=== PATIENT | male | born 1960 | race Hispanic/Latino ===

== ENCOUNTER 2019-04-10 17:05 | Emergency (ER) | payer MEDICARE ==
--- NOTE | 2019-04-10 17:17 | Emergency Department Report ---
Blank Doc - Documentation Documentation: 58-year-old male that presents with uncontrolled HTN. Stated has history of d epression. Deneis any SI/HI. This initial assessment/diagnostic orders/clinical plan/treatment(s) is/are subject to change based on patient's health status, clinical progression and re- assessment by fellow clinical providers in the ED. Further treatment and workup at subsequent clinical providers discretion. Patient/guardians urged not to elope from the ED as their condition may be serious if not clinically assessed and managed. Initial orders include: 1- Patient sent to [facility] for further evaluation and treatment 2- EKG 3- labs
[2019-04-10 18:23] LABS: Basophils # (Auto) 0.1 K/mm3 (0.0-0.1); Basophils % (Auto) 0.9 % (0.0-1.8); Eosinophils % (Auto) 0.1 % (0.0-4.3); Hematocrit 47.8 % (35.5-45.6); Hemoglobin 16.4 gm/dl (11.8-15.2); Lymphocytes # (Auto) 0.9 K/mm3 (1.2-5.4); Lymphocytes % (Auto) 7.2 % (13.4-35.0); Mean Corpuscular HGB Conc 34 % (32-34); Mean Corpuscular Volume 85 fl (84-94); Monocytes # (Auto) 0.9 K/mm3 (0.0-0.8); Monocytes % (Auto) 7.8 % (0.0-7.3); Platelet Count 234 K/mm3 (140-440); Red Cell Distribution Width 13.3 % (13.2-15.2)
[2019-04-10 18:44] LABS: BUN/Creatinine Ratio 15; Blood Urea Nitrogen 18 mg/dL (9-20); Calcium 9.1 mg/dL (8.4-10.2); Hemolysis Index 6
[2019-04-10] MEDS ORDERED: cloNIDine 0.2 MG TAB PO STA (19:07)
--- NOTE | 2019-04-10 19:07 | Emergency Department Report ---
<BRY WONG - Last Filed: 04/10/19 19:03> ED General Adult HPI - General Chief complaint: High BP Stated complaint: HBP/SEVERE DEPRESSION Time Seen by Provider: 04/10/19 17:15 Source: patient, EMS Mode of arrival: Ambulatory Limitations: No Limitations - History of Present Illness Severity scale (0 -10): 0 - Related Data Allergies Allergy/AdvReac Type Severity Reaction Status Date / Time No Known Allergies Allergy Verified 04/10/19 17:09 ED Review of Systems Comment: All other systems reviewed and negative ED Past Medical Hx - Past Medical History Previous Medical History?: Yes Hx Hypertension: Yes Hx Psychiatric Treatment: Yes (bipolar, depression) - Surgical History Past Surgical History?: Yes Additional Surgical History: right leg cancer lesion removed - Social History Smoking Status: Never Smoker Substance Use Type: None ED Physical Exam - General Limitations: No Limitations General appearance: alert, in no apparent distress - Head Head exam: Present: atraumatic, normocephalic - Eye Eye exam: Present: normal appearance, PERRL, EOMI Pupils: Present: normal accommodation, other (negative funduscopic examination.) - ENT ENT exam: Present: normal exam, normal orophraynx, mucous membranes moist - Neck Neck exam: Present: normal inspection, full ROM - Respiratory Respiratory exam: Present: normal lung sounds bilaterally. Absent: respiratory distress, wheezes, rales, chest wall tenderness, accessory muscle use, decreased breath sounds - Cardiovascular Cardiovascular Exam: Present: regular rate, normal rhythm. Absent: systolic murmur, diastolic murmur, rubs, gallop - GI/Abdominal GI/Abdominal exam: Present: soft, normal bowel sounds. Absent: tenderness, guarding, organomegaly, mass - Rectal Rectal exam: Present: deferred - Extremities Exam Extremities exam: Present: normal inspection, normal capillary refill - Back Exam Back exam: Present: normal inspection, full ROM. Absent: CVA tenderness (R), CVA tenderness (L) - Neurological Exam Neurological exam: Present: alert, oriented X3, CN II-XII intact, normal gait - Psychiatric Psychiatric exam: Present: normal affect, normal mood. Absent: homicidal ideation, suicidal ideation - Skin Skin exam: Present: warm, dry, intact, normal color. Absent: rash ED Medical Decision Making - Lab Data Result diagrams: 04/10/19 17:40 04/10/19 17:40 ED Disposition Clinical Impression: Depression Disposition: DC-01 TO HOME OR SELFCARE Condition: Stable Instructions: Depression (ED) Referrals: PRIMARY CARE, [Primary Care Provider] - 3-5 Days <TOSHIA MOHAMUD - Last Filed: 04/12/19 18:53> ED Review of Systems ROS: Stated complaint: HBP/SEVERE DEPRESSION Other details as noted in HPI ED Course Vital Signs 04/10/19 04/10/19 04/10/19 17:09 17:17 18:19 Temperature 98.7 F Pulse Rate 104 H Respiratory 20 18 Rate Blood Pressure 176/119 Blood Pressure [Right] O2 Sat by Pulse 98 Oximetry 04/10/19 04/10/19 04/10/19 18:21 19:10 20:00 Temperature 99.2 F 97.8 F Pulse Rate 105 H 107 H 114 H Respiratory 18 24 20 Rate Blood Pressure 159/110 Blood Pressure 199/114 155/113 [Right] O2 Sat by Pulse 98 98 95 Oximetry 04/10/19 04/10/19 04/10/19 20:30 21:00 21:30 Temperature Pulse Rate 116 H 110 H 110 H Respiratory 18 16 21 Rate Blood Pressure 153/104 140/105 156/108 Blood Pressure [Right] O2 Sat by Pulse 96 98 96 Oximetry 04/10/19 04/10/19 04/10/19 22:01 22:30 23:00 Temperature Pulse Rate 115 H 104 H 105 H Respiratory 20 20 16 Rate Blood Pressure 146/100 150/103 142/103 Blood Pressure [Right] O2 Sat by Pulse 96 95 96 Oximetry 04/10/19 04/11/19 04/11/19 23:30 00:00 00:30 Temperature Pulse Rate 103 H 94 H Respiratory 18 18 Rate Blood Pressure 138/98 134/92 164/116 Blood Pressure [Right] O2 Sat by Pulse 96 97 97 Oximetry 04/11/19 04/11/19 04/11/19 01:00 05:31 06:19 Temperature Pulse Rate 91 H 78 76 Respiratory 19 15 11 L Rate Blood Pressure 147/109 161/114 Blood Pressure [Right] O2 Sat by Pulse 96 96 98 Oximetry 04/11/19 04/11/19 04/11/19 07:51 09:23 18:11 Temperature 98.2 F 98.2 F Pulse Rate 78 83 78 Respiratory 18 18 18 Rate Blood Pressure 170/112 Blood Pressure 170/112 164/110 169/113 [Right] O2 Sat by Pulse 97 97 97 Oximetry 04/11/19 04/12/19 04/12/19 21:54 09:00 17:23 Temperature 97.9 F Pulse Rate 69 73 87 Respiratory 16 18 17 Rate Blood Pressure Blood Pressure 128/84 140/105 177/117 [Right] O2 Sat by Pulse 98 96 100 Oximetry - Reevaluation(s) Reevaluation #1: 04/12/19 18:52 Patient denied any suicidal or homicidal ideation. Patient also denied any visual or auditory hallucination. Patient has been evaluated by our mental health team and advised to follow-up as an outpatient. Patient is medically and psychiatrically stable for discharge. ED Medical Decision Making - Lab Data Result diagrams: 04/10/19 17:40 04/10/19 17:40 Critical care attestation.: If time is entered above; I have spent that time in minutes in the direct care of this critically ill patient, excluding procedure time. ED Disposition Is pt being admited?: No
--- NOTE | 2019-04-10 20:02 | Cat Scan Report ---
CT BRAIN: 04/10/2019 INDICATION / CLINICAL INFORMATION: headache and HTN. COMPARISON: None available. FINDINGS: BRAIN/INTRACRANIAL STRUCTURES: Unenhanced CT images of the brain demonstrate no evidence of acute int racranial abnormality. Ventricles and sulci are at the upper limits of normal in size and shape for a patient of this age. T here is evidence of chronic white matter hypoattenuation in the cerebral hemispheric white matter, co nsistent with chronic small vessel ischemic change. There is no evidence of hemorrhage or mass. There are no abnormal extra-axial fluid collections. EXTRACRANIAL STRUCTURES: Unremarkable. IMPRESSION: No acute abnormality. All CT scans at this location are performed using dose reduction to ALARA by means of automated expos ure control. Signer Name: Florian Fraser MD Signed: 04/10/2019 7:58 PM Workstation Name: [id number]
[2019-04-10 20:11] LABS: Bilirubin,Urine NEG (Negative); Blood,Urine NEG (Negative); Color,Urine Yellow (Yellow); Protein,Urine <15 mg/dL mg/dL (Negative); Urobilinogen,Urine < 2.0 mg/dL (<2.0)
[2019-04-10 22:48] LABS: Amphetamine Screen,Urine PRESUMPTIVE NEGATIVE; Benzodiazepines Screen,Urine PRESUMPTIVE NEGATIVE; Cannabinoid Screen,Urine PRESUMPTIVE NEGATIVE; Cocaine Screen,Urine PRESUMPTIVE NEGATIVE; Methadone Screen,Urine PRESUMPTIVE NEGATIVE; Opiate Screen,Urine PRESUMPTIVE NEGATIVE
[2019-04-11] MEDS ORDERED: amLODIPine 5 MG TAB PO ONE (07:46)
--- NOTE | 2019-04-11 08:41 | Consultation ---
History of Present Illness - Reason for Consult Consult date: 04/11/19 Reason for consult: Initial Psychiatric Evaluation - Chief Complaint Chief complaint: " real bad depression" - History of Present Psychiatric Illness Patient is a 58 year old male that presents to the emergency room with uncontrolled hypertension and severe depression. Patient has a PPHx bipolar disorder. Today the patient is calm and cooperative during the assessment. He reports " last year I had a bad manic episode, which resulted in me being hospitalized for approximately 1 month at [facility]. I was unable to return to my sister's home. I've been living in a correction since November 2017, which has been a nightmare." He states, " I got to the point where I wanted to stop living. I feel like I have no purpose." Patient endorses severe depressed mood, lack of motivation, anhedonia, decrease sleep, and decrease energy. He reports appropriate appetite. He denies beverly symptoms, suicidal/homicidal ideations, auditory/visual hallucinations, and delusions. Patient has been noncompliant with medication since October 2018. Current Psychiatric Medications: Patient has been noncompliant with medication since October 2018. Patient was last compliant with Wellbutrin, Zyprexa, Buspar, and Depakote. Per patient his previous medication were ineffective. Past Psychiatric History: Bipolar Disorder (2000); more than 10 pervious inpatient psychiatric hospitalizations; no outpatient psychiatrist; no previous suicide attempts. Past Medication Trials: Lamictal- " it was more effective." History of Alcohol/Drug Abuse: Patient denies drug/alcohol abuse. UDS negative. History of Trauma/Abuse: Patient denies trauma. Patient denies sexual, physical, and mental abuse. Social History: Bachelor's in History; lives in a correction-unable to return; 3 children- [place]; "good" support system. Family History of Psychiatric Illness/Substance Abuse: Mother- " psychiatric and substance abuse problems" Father- " substance abuse problems." Medications and Allergies Allergies Allergy/AdvReac Type Severity Reaction Status Date / Time No Known Allergies Allergy Verified 04/10/19 17:09 Mental Status Exam - Vital signs Last Vital Signs Temp 98.2 F 04/11/19 07:51 Pulse 78 04/11/19 07:51 Resp 18 04/11/19 07:51 BP 170/112 04/11/19 07:51 Pulse Ox 97 04/11/19 07:51 - Exam Narrative exam: Mental Status Exam: Appearance: calm Behavior: regular eye contact Speech: regular rate and tone Mood: "depressed" Affect: congruent to mood Thought Process: circumstantial Thought Content: denies SI/HI's and AVH's, delusions Motor Activity: lying in bed Cognition: A/O x 3 Insight: fair Judgment: variable Results Result Diagrams: 04/10/19 17:40 04/10/19 17:40 Abnormal lab results 04/10/19 04/10/19 04/11/19 Range/Units 17:40 17:40 00:18 WBC 11.9 H (4.5-11.0) K/mm3 RBC 5.60 H (3.65-5.03) M/mm3 Hgb 16.4 H (11.8-15.2) gm/dl Hct 47.8 H (35.5-45.6) % Lymph % (Auto) 7.2 L (13.4-35.0) % Nelson % (Auto) 7.8 H (0.0-7.3) % Lymph # 0.9 L (1.2-5.4) K/mm3 Nelson # 0.9 H (0.0-0.8) K/mm3 Seg Neutrophils % 84.0 H (40.0-70.0) % Seg Neutrophils # 10.0 H (1.8-7.7) K/mm3 Glucose 65 L (75-100) mg/dL Salicylates < 0.3 L (2.8-20.0) mg/dL Acetaminophen (10.0-30.0) ug/mL 04/11/19 Range/Units 00:18 WBC (4.5-11.0) K/mm3 RBC (3.65-5.03) M/mm3 Hgb (11.8-15.2) gm/dl Hct (35.5-45.6) % Lymph % (Auto) (13.4-35.0) % Nelson % (Auto) (0.0-7.3) % Lymph # (1.2-5.4) K/mm3 Nelson # (0.0-0.8) K/mm3 Seg Neutrophils % (40.0-70.0) % Seg Neutrophils # (1.8-7.7) K/mm3 Glucose (75-100) mg/dL Salicylates (2.8-20.0) mg/dL Acetaminophen < 5.0 L (10.0-30.0) ug/mL All other labs normal. Assessment and Plan Assessment and plan: Impression: PPHx Bipolar Disorder. Bipolar Disorder, depressed. Today the patient is calm and cooperative during the assessment. He endorses depressed mood. He denies SI/HI's, A/VH's, and delusions. UDS negative. Recommendation/Plan: 1. Will reassess in 24 hours. 2. Start Lamictal 25mg PO QAM for depression/mood and Vistaril 25mg PO BID anxiety. Discussed possible side effects (SJS) and anti-cholinergic side effects. Patient verbalized understanding. 3. Will consult case management for placement.
[2019-04-11] MEDS: hydrOXYzine PAMOATE 25 MG CAP PO SCH ×2 (12:35→22:00)
[2019-04-11] MEDS: lamoTRIgine 25 MG TAB PO SCH (12:35)
[2019-04-11] MEDS ORDERED: cloNIDine 0.1 MG TAB PO ONE (18:20)
[2019-04-11] MEDS ORDERED: ACETAMINOPHEN 325 MG TAB PO ONE (21:55)
--- NOTE | 2019-04-12 09:56 | Progress Note ---
Subjective - Reason for Consult Consult date: 04/12/19 Reason for consult: Psychiatry Follow-up - Chief Complaint Chief complaint: "I have a lot going on" 58 year old male who presented to the ER for uncontrollable hypertension and depression. Today the patient is calm and cooperative during the assessment. He stated that he have not seen his psychiatrist in several months. He stated that he reside in [place], [place] and his psychiatrist is jair torres [place], [place]. The patient is adamant about being treating for his bipolar do. He stated, "I want to be stable." He denies SI/HI's and AVH's. He denies any side effects from his medication. Mental Status Exam - Vital signs Last Vital Signs Temp 97.9 F 04/12/19 09:00 Pulse 73 04/12/19 09:00 Resp 18 04/12/19 09:00 BP 140/105 04/12/19 09:00 Pulse Ox 96 04/12/19 09:00 - Exam Narrative exam: MSE: Appearance: calm, cooperative Behavior: regular eye contact Speech: regular rate and tone Mood: "a little depressed" Affect: congruent to mood Thought Process: circumstantial Thought Content: denies SI/HI's and AVH's Motor Activity: sitting up in bed Cognition: A/O x3 Insight: fair Judgment: fair Assessment and Plan Impression: Bipolar DO. The patient was calm and cooperative during the assessment. The patient is no threat to self. Recommendation/Plan: Continue Lamictal 25 mg PO daily for mood and Vistaril 25 mg PO BID for anxiety. Discussed possible SJS with the patient, he verbalized understanding. Dispo: The patient is pending placement to [facility] (voluntary). Will staff with Dr Megha Quijano.
[2019-04-12] MEDS: lamoTRIgine 25 MG TAB PO SCH (12:45)
[2019-04-12] MEDS: hydrOXYzine PAMOATE 25 MG CAP PO SCH (12:45)
[2019-04-12 17:24] VITALS: BP 177/117
== END 2019-04-12 19:09 | disposition home or self-care (01) ==
LOC: ED 17:05
DX: I10 Essential (primary) hypertension (principal); F31.9 Bipolar disorder, unspecified
CPT/HCPCS: 36415; 70450; 80048; 80307; 80320; 81001; 82962; 85025; 93005; 93010; G0480; Q0177